=== PATIENT | male | born 1995 | race Caucasian/White ===

== ENCOUNTER 2021-04-04 10:44 | Emergency (ER) | payer OTHER, SELFPAY ==
--- NOTE | 2021-04-04 10:46 | ED.EYEPROB ---
HPI - Eye Problem General Chief complaint: Eye Problems Stated complaint: EYE REDNESS Time Seen by Provider: 04/04/21 10:47 Source: patient and RN notes reviewed History of Present Illness HPI Narrative: Patient is a 25-year-old male who presents the urgent care with complaints of bilateral eye redness. Patient states that he was swimming all day on Friday playing water polo with the use of someone else's goggles. Patient states that he woke up yesterday with matting to the eyes and increased pressure. Patient states he has been putting Systane drops in the eyes and did remove the contacts. Denies of any known injury to the eyes. Denies of any fevers. Reports of some mild swelling this morning and did wake up to matting of the eyes. No other acute complaints. No acute distress noted. Patient aware of the plan of care. Some parts of this dictation were generated by voice recognition software and may contain typographical and/or grammatical inaccuracies. Related Data Allergies Allergy/AdvReac Type Severity Reaction Status Date / Time No Known Allergies Allergy Verified 04/04/21 11:00 Review of Systems Review of Systems: Narrative: CONSTITUTIONAL: Denies fever, chills, or sweats. EYES: Reports of bilateral eye redness, surrounding swelling and patient to follow-up in 2-3 days with primary care provider. ENT: Denies rhinorrhea, congestion, sore throat, or otalgia. CARDIOVASCULAR: Denies chest pain, palpitations, or edema. RESPIRATORY: Denies cough or dyspnea. GASTROINTESTINAL: Denies abdominal pain, nausea, vomiting, or diarrhea. GENITOURINARY: Denies dysuria or hematuria. SKIN: Denies rash or itching. MUSCULOSKELETAL: Denies back pain, joint pain, or myalgia. NEUROLOGIC: Denies headache, numbness, or weakness. All other systems reviewed are negative, except as documented in HPI. PMFSH Comments At the time of my signature, I reviewed and agree with the nursing past medical, surgical, social, and family history. There is no relevant family history pertinent to the patient complaint. Exam Narrative: Exam Narrative: GENERAL: This is a well-nourished, well-developed patient, in no apparent distress. HEAD: normocephalic, atraumatic. EYES: PERRL. Vision is grossly intact. Moderately injected bilateral conjunctiva, erythemic sclera bilaterally, mild surrounding edema bilaterally. No obvious trauma to the eye. EARS: External ears normal NOSE: External nose normal with no obvious nasal discharge, nares without redness, no rhinorrhea. THROAT: Mucous membranes moist NECK: Neck supple CARDIOVASCULAR: Regular rate and rhythm without murmurs, gallops, or rubs. RESPIRATORY: Clear to auscultation. Breath sounds equal bilaterally. No wheezes, rales, or rhonchi. SKIN: warm, intact with no suspicious lesions or rash, good texture and turgor. NEURO: awake, alert, and oriented to person, place and time. There were no obvious focal neurologic abnormalities. EXTREMITIES: No clubbing, cyanosis, or edema. Course Vital Signs Vital signs: Vital Signs Temperature 98.2 F 04/04/21 10:55 Pulse Rate 56 L 04/04/21 10:55 Respiratory Rate 16 04/04/21 10:55 Blood Pressure 141/83 H 04/04/21 10:55 Pulse Oximetry 100 04/04/21 10:55 Temperature 98.2 F 04/04/21 10:55 Pulse Rate 56 L 04/04/21 10:55 Respiratory Rate 16 04/04/21 10:55 Blood Pressure 141/83 H 04/04/21 10:55 Pulse Oximetry 100 04/04/21 10:55 Reviewed-patient is informed that they may have pre-hypertension or hypertension based on a blood pressure reading in the department. I recommend the patient call the primary care provider listed on their discharge instructions or a physician of their choice this week to arrange follow-up for further evaluation of possible pre-hypertension or hypertension. MDM - Eye Problem MDM Narrative Medical decision making narrative: Advised the patient not to wear contacts for at least 5 to 7 days. Use prescription eyedrops to the affec
[2021-04-04 10:55] VITALS: BP 141/83; PULSE 56; RESP 16; TEMP 36.8; O2SAT 100
== END 2021-04-04 11:13 | disposition home or self-care (01) ==
PROVIDERS: Emergency Provider Nurse Practitioner Family
DX: H10.9 Unspecified conjunctivitis (principal)
CPT/HCPCS: 99213; G0463